=== PATIENT | female | born 1965 | race Caucasian/White ===

== ENCOUNTER 2017-07-03 05:27 | Day surgery (SDC) | payer MEDICAID ==
[2017-06-23 15:13] LABS: BASOPHILS % (AUTO) 0.8 % (0-1); EOSINOPHILS % (AUTO) 0 % (0-6); LYMPHOCYTES # (AUTO) 1.8 X10'3 (1.1-4.8); LYMPHOCYTES % (AUTO) 34.6 % (21-51); MEAN CORPUSCULAR HEMOGLOBIN 29.9 PG (27.0-31.0); MEAN CORPUSCULAR HGB CONC 34.8 % (33.0-36.5); MEAN CORPUSCULAR VOLUME 85.8 FL (78-98); MEAN PLATELET VOLUME 7.9 FL (7.4-10.4); MONOCYTES # (AUTO) 0.4 X10'3 (0-0.9); MONOCYTES % (AUTO) 7.2 % (2-12); NEUTROPHILS % (AUTO) 57.4 % (42-75); PRE OP HEMATOCRIT 34.1 % (35.0-45.0); PRE OP HEMOGLOBIN 11.9 g/dL (12.0-16.0); PRE OP PLATELET COUNT 226 X10'3 (140-440); RED BLOOD COUNT 3.97 X10'6 (4.20-5.60); RED CELL DISTRIBUTION WIDTH 13.2 % (11.5-14.5)
[2017-06-23 15:33] LABS: ALBUMIN 3.5 G/DL (3.4-5.0); ALBUMIN/GLOBULIN RATIO 0.9 (1.1-1.5); ALKALINE PHOSPHATASE 53 IU/L (46-116); BLOOD UREA NITROGEN 13 MG/DL (7-18); CHLORIDE 104 MMOL/L (99-107); CREATININE 0.81 MG/DL (0.40-0.90); PRE OP ALT 26 U/L (30-65); PRE OP ANION GAP 8 (8-16); PRE OP AST 18 U/L (10-37); PRE OP BILIRUB, TOTAL 0.3 MG/DL (0.0-1.0); PRE OP GLUCOSE 88 MG/DL (70-104); PRE OP POTASSIUM 3.7 MMOL/L (3.4-5.1); PRE OP SODIUM 143 MMOL/L (135-145); TOTAL CARBON DIOXIDE 30.8 MMOL/L (24-32); TOTAL PROTEIN 7.5 G/DL (6.4-8.2); eGFR 74 ML/MIN
[2017-07-03] VITALS (7 sets, daily range): BP systolic 110–138; BP diastolic 67–78
[~2017-07-03] VITALS: Ht 162.6 cm; Wt 83.4 kg
[~2017-07-03 05:27] MED LIST: EFF25T PO; IBUP-1986 PO; MIDAZolam 5mg/ml 2ml vial ONE; fentaNYL/PF 50MCG/1 ML 2ML syringe ONE; propofol inj 20 ML IV ONE; ringers solution, lacted 1,000 ML IV SCH
[2017-07-03] MEDS ORDERED: famotidine 20mg tablet PO ONE (05:30)
[2017-07-03] MEDS ORDERED: cefazolin/dext.iso 2gm/50ml 50 ML IV ONE (05:30)
[2017-07-03] MEDS ORDERED: IBUP-1984 PO (05:53)
[2017-07-03] MEDS ORDERED: LIDOcaine 1% (10mg/ml) 2ml vial ONE (06:07)
[2017-07-03] MEDS ORDERED: BUPIVAcaine/PF 2.5 mg/ml (0.25%) 30ml vial ONE ×2 (06:52→07:18)
[2017-07-03] MEDS ORDERED: ipratropium/albuterol 3ml nebule NEB STA (07:04)
[2017-07-03] MEDS ORDERED: fentaNYL/PF 50MCG/1 ML 2ML syringe ONE (09:24)
[2017-07-03] MEDS ORDERED: MIDAZolam 5mg/5ml vial ONE (09:24)
[2017-07-03] MEDS ORDERED: LIDOcaine 2% (20mg/ml) 5ml vial ONE (09:24)
[2017-07-03] MEDS ORDERED: propofol inj 20 ML IV ONE (09:25)
[2017-07-03] MEDS ORDERED: ROPIVAcaine 0.5% (5mg/ml) 30ml vial ONE (09:34)
[2017-07-03] MEDS ORDERED: sevoflurane 250ml liquid IH ONE (09:37)
[2017-07-03] MEDS ORDERED: proCHLORperazine 10 MG/2 ml inj IV PRN (11:00)
[2017-07-03] MEDS ORDERED: ondansetron/PF 4mg/2ml inj IV PRN (11:00)
[2017-07-03] MEDS ORDERED: ringers solution, lacted 1,000 ML IV SCH (11:00)
[2017-07-03] MEDS ORDERED: meperidine/PF 50mg/ml syringe IV PRN ×3 (11:00)
[2017-07-03] MEDS ORDERED: dexamethasone sod phosphate 4mg/ml inj. ONE (11:24)
[2017-07-03] MEDS ORDERED: HYDROcodone/acetaminophen 10/325mg tab PO PRN (11:40)
== END 2017-07-03 12:50 | disposition home or self-care (01) ==
LOC: PAS 05:27 → EDSTATUS 07:30 → PAS 12:50
PROVIDERS: ATTEND Orthopaedic Surgery
DX: M75.111 Incomplete rotator cuff tear or rupture of right shoulder, not specified as traumatic (principal); M75.41 Impingement syndrome of right shoulder; M19.011 Primary osteoarthritis, right shoulder; M75.51 Bursitis of right shoulder; J44.9 Chronic obstructive pulmonary disease, unspecified; F32.89 Other specified depressive episodes; E66.9 Obesity, unspecified; Z87.891 Personal history of nicotine dependence
CPT/HCPCS: 29823; 29824; 36415; 80053; 85025; 86885; 86900; 86901; 93005; 94640; J0690; J1100; J2001; J2250; J2704; J2795; J3010; J3490; J7030; J7120; A7000

== ENCOUNTER 2017-08-07 11:48 | Emergency (ER) | payer MEDICAID ==
[~2017-08-07] VITALS: Ht 160 cm; Wt 75.0 kg
[~2017-08-07 11:48] MED LIST changes: +IBUP-1984 PO; -IBUP-1986 PO; -MIDAZolam 5mg/ml 2ml vial ONE; -fentaNYL/PF 50MCG/1 ML 2ML syringe ONE; -propofol inj 20 ML IV ONE; -ringers solution, lacted 1,000 ML IV SCH
[2017-08-07 11:52] VITALS: BP 145/72
== END 2017-08-07 14:19 | disposition home or self-care (01) ==
LOC: ER 11:48
DX: S60.022A Contusion of left index finger without damage to nail, initial encounter (principal); S60.032A Contusion of left middle finger without damage to nail, initial encounter; S60.042A Contusion of left ring finger without damage to nail, initial encounter; S60.052A Contusion of left little finger without damage to nail, initial encounter; S60.222A Contusion of left hand, initial encounter; G89.29 Other chronic pain; Z88.5 Allergy status to narcotic agent; Z79.899 Other long term (current) drug therapy; W23.0XXA Caught, crushed, jammed, or pinched between moving objects, initial encounter; Y93.89 Activity, other specified; Y92.89 Other specified places as the place of occurrence of the external cause; Y99.8 Other external cause status
CPT/HCPCS: 73130; 99284

== ENCOUNTER 2018-10-14 10:34 | Day surgery (SDC) | payer MEDICAID ==
[2018-10-06 11:56] LABS: BASOPHILS # (AUTO) 0.1 X10'3 (0-0.2); BASOPHILS % (AUTO) 0.9 % (0-1); EOSINOPHILS % (AUTO) 0.4 % (0-6); LYMPHOCYTES # (AUTO) 1.4 X10'3 (1.1-4.8); LYMPHOCYTES % (AUTO) 15.1 % (21-51); MEAN CORPUSCULAR HEMOGLOBIN 28.7 PG (27.0-31.0); MEAN CORPUSCULAR HGB CONC 33.3 g/dL (33.0-36.5); MEAN CORPUSCULAR VOLUME 86.2 FL (78-98); MEAN PLATELET VOLUME 7.4 FL (7.4-10.4); MONOCYTES # (AUTO) 0.5 X10'3 (0-0.9); MONOCYTES % (AUTO) 5.1 % (2-12); NEUTROPHILS # (AUTO) 7.5 X10'3 (1.8-7.7); NEUTROPHILS % (AUTO) 78.5 % (42-75); PRE OP HEMATOCRIT 37.5 % (35.0-45.0); PRE OP HEMOGLOBIN 12.5 g/dL (12.0-16.0); PRE OP PLATELET COUNT 278 X10'3 (140-440); RED BLOOD COUNT 4.35 X10'6 (4.20-5.60); RED CELL DISTRIBUTION WIDTH 13.8 % (11.5-14.5)
[2018-10-06 12:11] LABS: ALBUMIN 3.8 G/DL (3.4-5.0); ALBUMIN/GLOBULIN RATIO 0.8 (1.1-1.5); ALKALINE PHOSPHATASE 68 IU/L (46-116); BLOOD UREA NITROGEN 13 MG/DL (7-18); BUN/CREATININE RATIO 16.5 (6.6-38.0); CALCIUM 9.6 MG/DL (8.5-10.1); CHLORIDE 102 MMOL/L (99-107); CREATININE 0.79 MG/DL (0.40-0.90); PRE OP ALT 20 U/L (30-65); PRE OP ANION GAP 7 (8-16); PRE OP AST 15 U/L (10-37); PRE OP BILIRUB, TOTAL 0.4 MG/DL (0.0-1.0); PRE OP GLUCOSE 80 MG/DL (70-104); PRE OP POTASSIUM 4.1 MMOL/L (3.4-5.1); PRE OP SODIUM 137 MMOL/L (135-145); TOTAL PROTEIN 8.3 G/DL (6.4-8.2); eGFR 76 ML/MIN
[2018-10-14] VITALS (7 sets, daily range): BP systolic 129–141; BP diastolic 54–82
[~2018-10-14] VITALS: Ht 160 cm; Wt 81.4 kg
[~2018-10-14 10:34] MED LIST changes: -EFF25T PO; +SERT50TA10 PO
[2018-10-14] MEDS ORDERED: famotidine 20mg tablet PO ONE (12:30)
[2018-10-14] MEDS ORDERED: vancomycin inj 1,500 MG in normal saline 300ml IV soln IV ONE (12:30)
[2018-10-14] MEDS ORDERED: albuterol 2.5 MG/3 ML nebule NEB ONE (12:30)
[2018-10-14] MEDS ORDERED: cefazolin/dext.iso 2gm/100 ML IV ONE (12:30)
[2018-10-14] MEDS ORDERED: ringers solution, lacted 1,000 ML IV SCH ×2 (12:30→12:31)
[2018-10-14] MEDS ORDERED: ondansetron/PF 4mg/2ml inj IV PRN (12:35)
[2018-10-14] MEDS ORDERED: HYDROmorphone inj. 0.5 MG/0.5 ML DISP.SYRIN IV PRN ×2 (12:35)
[2018-10-14] MEDS ORDERED: meperidine/PF 25mg/ml syringe IV PRN ×3 (12:35)
[2018-10-14] MEDS ORDERED: LIDOcaine 0.5% (5mg/ml) 50ml vial ONE (13:43)
[2018-10-14] MEDS ORDERED: fentaNYL/PF 50MCG/1 ML 2ML syringe ONE (14:43)
[2018-10-14] MEDS ORDERED: methylPREDNISolone sod succ 125mg/2ml vial ONE (15:00)
[2018-10-14] MEDS ORDERED: BUPIVAcaine/PF 2.5 mg/ml (0.25%) 30ml vial ONE (15:04)
[2018-10-14] MEDS ORDERED: propofol inj 20 ML IV ONE (15:31)
--- NOTE | 2018-10-14 15:42 | NUR ---
Received from OR via [facility], accompanied by Anesthesiologist Jass and report given by Anesthesiolgist. Pt alert and responsive, on room air O2 100%, splint and dressing to left arm. no pain complaints, VS stable, MD at bedside.
[2018-10-14] MEDS ORDERED: HYDROcodone/acetaminophen 10/325mg tab PO ONE (16:20)
--- NOTE | 2018-10-14 16:52 | NUR ---
awake vs wnl, pain decreased after po med. fingers warm pink good cap refill and movement. dsg di, tolerates liquids, nausea subsiding. disch instr given to pt and daughter and understood, ice pack to left wrist. voided home with daughter
== END 2018-10-14 16:52 | disposition home or self-care (01) ==
LOC: PAS 10:34
PROVIDERS: ATTEND Orthopaedic Surgery
DX: G56.02 Carpal tunnel syndrome, left upper limb (principal); M65.322 Trigger finger, left index finger; M65.312 Trigger thumb, left thumb; S66.111A Strain of flexor muscle, fascia and tendon of left index finger at wrist and hand level, initial encounter; G56.22 Lesion of ulnar nerve, left upper limb; M19.011 Primary osteoarthritis, right shoulder; E66.8 Other obesity; G89.4 Chronic pain syndrome; F32.89 Other specified depressive episodes; I10 Essential (primary) hypertension; F03.90 Unspecified dementia, unspecified severity, without behavioral disturbance, psychotic disturbance, mood disturbance, and anxiety; F17.210 Nicotine dependence, cigarettes, uncomplicated; G43.909 Migraine, unspecified, not intractable, without status migrainosus; F41.9 Anxiety disorder, unspecified; F43.10 Post-traumatic stress disorder, unspecified; X58.XXXA Exposure to other specified factors, initial encounter; Y93.89 Activity, other specified; Y92.89 Other specified places as the place of occurrence of the external cause; Y99.8 Other external cause status; Z98.890 Other specified postprocedural states; Z68.32 Body mass index [BMI] 32.0-32.9, adult; Z79.899 Other long term (current) drug therapy; Z88.8 Allergy status to other drugs, medicaments and biological substances
CPT/HCPCS: 26055; 26356; 36415; 64719; 64721; 71046; 80053; 82948; 85025; 93005; A6222; J0690; J2001; J2175; J2405; J2704; J2930; J3010; J3370; J3490; A6250; A6449; A7000; J7120